=== PATIENT | male | born 1965 | race Caucasian/White ===

== ENCOUNTER 2017-03-18 20:26 | Emergency (ER) | payer SELFPAY ==
[2017-03-18 20:45] VITALS: O2SAT 97
[2017-03-18 22:03] LABS: BASO # 0.1 K/uL (0.0-0.2); BASO % 1.1 % (0.0-2.0); EOS # 0.1 K/uL (0.0-0.7); EOS % 1.8 % (0.0-4.0); HEMATOCRIT 44.5 % (35.0-51.0); LYMPH # 2.6 K/uL (1.0-4.3); LYMPH % 34.4 % (20.0-40.0); MEAN CELL VOLUME 92.1 fL (80.0-94.0); MEAN CORPUSCULAR HEMOGLOBIN 31.8 pg (27.0-31.0); MEAN CORPUSCULAR HGB CONC 34.5 g/dL (33.0-37.0); MEAN PLATELET VOLUME 8.4 fL (7.2-11.7); MONO # 0.5 K/uL (0.0-0.8); MONO % 7.1 % (0.0-10.0); NRBC % 0.1 % (0.0-2.0); RED CELL DISTRIBUTION WIDTH 13.4 % (11.5-14.5); WHITE BLOOD COUNT 7.6 K/uL (4.8-10.8)
[2017-03-18 22:05] LABS: RBC URINE 2 /hpf (0-3); URINE BILIRUBIN NEGATIVE (NEGATIVE); URINE BLOOD NEGATIVE (NEGATIVE); URINE COLOR Yellow (YELLOW); URINE GLUCOSE (UA) NORMAL (Normal); URINE KETONE NEGATIVE (NEGATIVE); URINE LEUKOCYTE ESTERASE NEG Leu/uL (Negative); URINE PROTEIN NEGATIVE (NEGATIVE); URINE UROBILINOGEN NORMAL mg/dL (0.2-1.0); WBC URINE < 1 /hpf (0-5)
[2017-03-18 22:06] LABS: URINE BACTERIA RARE (<OCC)
[2017-03-18 22:12] LABS: CHLORIDE 97 mmol/L (98-107); SODIUM 137 mmol/L (132-148)
[2017-03-18 22:14] LABS: AST/SGOT 49 U/L (17-59); BILIRUBIN,TOTAL 0.5 mg/dL (0.2-1.3); CARBON DIOXIDE 26 mmol/L (22-30); GFR AFRICAN-AMERICAN > 60
[2017-03-18 22:15] LABS: ALB/GLOB RATIO 1.3 (1.0-2.1); ALCOHOL SERUM < 10 mg/dl (0-10); ALKALINE PHOSPHATASE 111 U/L (38-126); ALT/SGPT 66 U/L (21-72); BLOOD UREA NITROGEN 14 mg/dL (9-20); CALCIUM 9.1 mg/dl (8.6-10.4); GLUCOSE,RANDOM 97 mg/dL (75-110); TOTAL PROTEIN 7.8 g/dL (6.3-8.3)
--- NOTE | 2017-03-18 23:41 | C.PDOC ---
History Of Present Illness pt presents with abdominal pain and constipation. Last bm 2-3 days ago. No f/c/n /v Time Seen by Provider: 03/18/17 22:58 Chief Complaint (Nursing): Abdominal Pain History Per: Patient History/Exam Limitations: no limitations Onset/Duration Of Symptoms: Days Current Symptoms Are (Timing): Still Present Context: Other Severity: Moderate Pain Scale Rating Of: 4 Location Of Pain/Discomfort: Diffuse Radiation Of Pain To:: None Quality Of Discomfort: Dull, Cramping Associated Symptoms: Constipation. denies: Fever, Chills Exacerbating Factors: None Alleviating Factors: None Last Bowel Movement: Days Ago Recent travel outside of the [place]: No Additional History Per: Patient Past Medical History Reviewed: Historical Data, Nursing Documentation, Vital Signs Vital Signs: Last Vital Signs Temp 98.5 F 03/18/17 20:40 Pulse 82 03/18/17 20:40 Resp 16 03/18/17 20:40 BP 123/82 03/18/17 20:40 Pulse Ox 97 03/18/17 23:41 - Medical History PMH: Denies: Asthma, Chronic Kidney Disease - [facility] Procedures INSPECTION OF PERITONEAL CAVITY, OPEN APPROACH (09/13/15) SUPPLEMENT L INGUINAL REGION WITH SYNTH SUB, OPEN APPROACH (09/13/15) Family History: States: No Known Family Hx - Social History Hx Tobacco Use: No Hx Alcohol Use: Yes Hx Substance Use: No - Immunization History Hx Tetanus Toxoid Vaccination: No Hx Influenza Vaccination: Yes Hx Pneumococcal Vaccination: No Review Of Systems Constitutional: Negative for: Fever, Chills Eyes: Negative for: Vision Change ENT: Negative for: Throat Pain Cardiovascular: Negative for: Chest Pain Respiratory: Negative for: Shortness of Breath Gastrointestinal: Positive for: Abdominal Pain, Constipation. Negative for: Nausea, Vomiting Genitourinary: Negative for: Dysuria Musculoskeletal: Negative for: Back Pain Skin: Negative for: Rash, Lesions, Jaundice Neurological: Negative for: Weakness Psych: Negative for: Anxiety Physical Exam - Physical Exam Appears: Non-toxic, No Acute Distress Skin: Warm, Dry Head: Normacephalic Eye(s): bilateral: Normal Inspection Oral Mucosa: Moist Neck: Supple Chest: Symmetrical Cardiovascular: Rhythm Regular Respiratory: No Rales, No Rhonchi, No Wheezing Gastrointestinal/Abdominal: Soft, Tenderness, No Organomegaly, No Distention, No Rebound Back: No CVA Tenderness Extremity: No Tenderness Extremity: Bilateral: Atraumatic, Normal Color And Temperature Pulses: Left Dorsalis Pedis: Normal, Right Dorsalis Pedis: Normal Neurological/Psych: Oriented x3, Normal Speech, Normal Cognition Gait: Steady ED Course And Treatment - Laboratory Results Result Diagrams: 03/18/17 22:01 03/18/17 22:01 O2 Sat by Pulse Oximetry: 97 Pulse Ox Interpretation: Normal Disposition Counseled Patient/Family Regarding: Studies Performed, Diagnosis, Need For Followup, Rx Given - Disposition Referrals: [facility] [Outside] [facility] [Outside] Disposition: HOME/ ROUTINE Disposition Time: 21:00 Condition: FAIR Prescriptions: Polyethylene Glycol 3350 [Miralax] 17 gm PO DAILY #270 ml Forms: [employer] (Ukrainian) Print Language: MONTENEGRIN - Clinical Impression Clinical Impression: Constipation, Abdominal pain
[2017-03-19] MEDS ORDERED: Magnesium Citrate Oral SOL (300 ml) PO ONE (00:23)
[2017-03-19] MEDS ORDERED: Magnesium Citrate Oral SOL (300 ml) ONE (00:29)
[2017-03-19 00:40] VITALS: BP 129/72; PULSE 81; RESP 20; TEMP 97.8
--- NOTE | 2017-03-19 11:20 | RAD ---
PROCEDURE: Radiographs of the chest and abdomen (obstructive series) HISTORY: abd pain COMPARISON: Obstructive 09/14/2015. TECHNIQUE: AP radiograph of the chest, with upright and supine radiographs of the abdomen. FINDINGS: CHEST: Lungs: Clear. Cardiovascular: Cardiac silhouette appears upper limits of normal size. No pulmonary vascular derangement appreciated. Pleura: No pleural fluid. No pneumothorax. Other findings: None. ABDOMEN AND PELVIS: Bowel: Unremarkable bowel gas pattern. No evidence of mechanical obstruction. Prior radiodensity in the region of the proximal descending left colon segment is now not identified. Free air: None. Bones: Unremarkable. Other findings: Small phlebolith like density seen the right pelvis soft tissues inferiorly. IMPRESSION: Nonobstructive bowel gas pattern is identified. Accompanying chest reveals no acute cardiopulmonary disease. No signal change compared to 09/14/2015 radiographs.
== END 2017-03-19 00:40 | disposition home or self-care (01) ==
LOC: C.ER 20:26
DX: K59.00 Constipation, unspecified (principal); R10.9 Unspecified abdominal pain
CPT/HCPCS: 74022; 80053; 81001; 83690; 85025; 99285; G0480

== ENCOUNTER 2018-11-06 22:32 | Emergency (ER) | payer OTHER ==
[2018-11-06 22:41] VITALS: RESP 16
[2018-11-06 23:10] LABS: BASO # 0.1 K/uL (0.0-0.2); BASO % 0.8 % (0.0-2.0); EOS # 0.1 K/uL (0.0-0.7); EOS % 2.1 % (0.0-4.0); HEMOGLOBIN 13.9 g/dL (12.0-18.0); LYMPH # 2.7 K/uL (1.0-4.3); LYMPH % 41.5 % (20.0-40.0); MEAN CELL VOLUME 93.7 fL (80.0-94.0); MEAN CORPUSCULAR HEMOGLOBIN 32.2 pg (27.0-31.0); MEAN CORPUSCULAR HGB CONC 34.3 g/dL (33.0-37.0); MONO # 0.5 K/uL (0.0-0.8); MONO % 8.5 % (0.0-10.0); NEUT % 47.1 % (50.0-75.0); NRBC % 0.1 % (0.0-2.0); RBC 4.32 Mil/uL (4.40-5.90); RED CELL DISTRIBUTION WIDTH 13.5 % (11.5-14.5); WHITE BLOOD COUNT 6.4 K/uL (4.8-10.8)
--- NOTE | 2018-11-06 23:10 | C.PDOC ---
History Of Present Illness 53 y/o male pt presents to the ER c/o low abdominal fullness. Associated sx includes constipation. Pt reports using a stool softener today, which allowed him to have a small bowel movement but no full evacuation. Pt denies abdominal pain, nausea, vomiting, fever, chills, chest pain and SOB. Time Seen by Provider: 11/06/18 22:50 Chief Complaint (Nursing): Abdominal Pain History Per: Patient History/Exam Limitations: no limitations Onset/Duration Of Symptoms: Days Current Symptoms Are (Timing): Still Present Past Medical History Reviewed: Historical Data, Nursing Documentation, Vital Signs Vital Signs: Last Vital Signs Temp 98.7 F 11/06/18 22:34 Pulse 79 11/06/18 22:34 Resp 16 11/06/18 22:34 BP 138/85 11/06/18 22:34 Pulse Ox 98 11/06/18 22:34 - [facility] Procedures INSPECTION OF PERITONEAL CAVITY, OPEN APPROACH (09/13/15) SUPPLEMENT L INGUINAL REGION WITH SYNTH SUB, OPEN APPROACH (09/13/15) Family History: States: Unknown Family Hx - Social History Hx Tobacco Use: No Hx Alcohol Use: Yes Hx Substance Use: No - Immunization History Hx Tetanus Toxoid Vaccination: No Hx Influenza Vaccination: Yes Hx Pneumococcal Vaccination: No Review Of Systems Except As Marked, All Systems Reviewed And Found Negative. Gastrointestinal: Positive for: Constipation Physical Exam - Physical Exam Appears: Well, Non-toxic, No Acute Distress Skin: Normal Color, Warm, Dry Head: Normacephalic Eye(s): bilateral: Normal Inspection, PERRL, EOMI Nose: Normal Oral Mucosa: Moist Chest: Symmetrical Cardiovascular: Rhythm Regular, No Murmur Respiratory: Normal Breath Sounds, No Rales, No Rhonchi, No Wheezing Gastrointestinal/Abdominal: Normal Exam, Soft, No Tenderness, No Distention Extremity: Bilateral: Atraumatic, Normal Color And Temperature, Normal ROM Neurological/Psych: Oriented x3, Normal Speech Gait: Steady ED Course And Treatment - Laboratory Results Result Diagrams: 11/06/18 23:06 11/06/18 23:06 O2 Sat by Pulse Oximetry: 98 (RA) Pulse Ox Interpretation: Normal Medical Decision Making Medical Decision Making: Assessment: constipation Plans: -- chem labs -- blood work -- Obstructive series XR Disposition Counseled Patient/Family Regarding: Studies Performed, Diagnosis - Disposition Referrals: [facility] [Outside] Disposition: HOME/ ROUTINE Disposition Time: 00:32 Condition: STABLE Additional Instructions: follow up with your doctor within 2 days call to make an appointment increase vegetables and fruits in your diet return to ER if symptoms worsens or progress Prescriptions: Polyethylene Glycol 3350 [Miralax] 17 g PO DAILY PRN #12 packet PRN Reason: Constipation Instructions: Constipation, Adult (DC) Forms: Gen Discharge Inst Russian, [facility] (Russian) Print Language: SAMOAN - Clinical Impression Clinical Impression: Constipation - Scribe Statement The provider has reviewed the documentation as recorded by the Stanleyibe Velazquez Do Provider Attestation: All medical record entries made by the Scribe were at my direction and personally dictated by me. I have reviewed the chart and agree that the record accurately reflects my personal performance of the history, physical exam, medi stuart decision making, and the department course for this patient. I have also personally directed, reviewed, and agree with the discharge instructions and disposition.
[2018-11-06 23:23] LABS: ALB/GLOB RATIO 1.5 (1.0-2.1); ALBUMIN 4.2 g/dL (3.5-5.0); ALT/SGPT 81 U/L (21-72); AST/SGOT 75 U/L (17-59); BLOOD UREA NITROGEN 21 mg/dL (9-20); CALCIUM 9.5 mg/dl (8.6-10.4); GFR NON-AFRICAN AMERICAN > 60; LIPASE 96 U/L (23-300)
[2018-11-07] MEDS ORDERED: Bisacodyl 5mg EC Tab PO ONE (00:31)
[2018-11-07 00:52] VITALS: BP 121/72; PULSE 74; TEMP 97.9; O2SAT 99
--- NOTE | 2018-11-07 16:14 | RAD ---
Date of service: 11/07/2018 PROCEDURE: Radiographs of the chest and abdomen (obstructive series) HISTORY: abd pain COMPARISON: No prior. TECHNIQUE: AP radiograph of the chest, with upright and supine radiographs of the abdomen. 3 views obtained. FINDINGS: CHEST: Lungs: Clear. Cardiovascular: Normal size heart. No pulmonary vascular congestion. No aortic atherosclerotic calcification present Pleura: No pleural fluid. No pneumothorax. Other findings: None. ABDOMEN AND PELVIS: Bowel: Unremarkable bowel gas pattern. No evidence of mechanical obstruction. Free air: None. Bones: Unremarkable. Other findings: None. IMPRESSION: Unremarkable radiographs of chest and abdomen. No evidence of mechanical bowel obstruction.
== END 2018-11-07 00:52 | disposition home or self-care (01) ==
LOC: C.ER 22:32
DX: K59.00 Constipation, unspecified (principal)

== ENCOUNTER 2018-12-19 10:56 | Emergency (ER) | payer OTHER ==
[2018-12-19 11:05] VITALS: BP 108/72; PULSE 90; RESP 20; TEMP 99; O2SAT 97
--- NOTE | 2018-12-19 11:48 | C.PDOC ---
History Of Present Illness 53 year old male presents to the ED complaining of dry and nonproductive cough since yesterday. States the nasal congestion prevented him from sleeping last night. Reports he took OTC cough syrup with little improvement. Denies any sick contacts or recent travels. Denies seasonal allergies, fever, chills, chest pain, nausea, or vomiting. Chief Complaint (Nursing): Cough, Cold, Congestion History Per: Patient History/Exam Limitations: no limitations Onset/Duration Of Symptoms: Days (1) Current Symptoms Are (Timing): Still Present Location Of Pain: None Sick Contacts (Context): None Associated Symptoms: Cough, Nasal Congestion. denies: Fever, Chills, Sore Throat, Neck Pain, Nausea, Vomiting, Diarrhea Ear Symptoms: Bilateral: None Past Medical History Reviewed: Historical Data, Nursing Documentation, Vital Signs Vital Signs: Last Vital Signs Temp 99 F 12/19/18 10:59 Pulse 90 12/19/18 10:59 Resp 20 12/19/18 10:59 BP 108/72 12/19/18 10:59 Pulse Ox 97 12/19/18 10:59 Primary Care Provider: Cheo Tran - Medical History PMH: No Chronic Diseases Denies: Asthma, Chronic Kidney Disease Surgical History: No Surg Hx - [facility] Procedures INSPECTION OF PERITONEAL CAVITY, OPEN APPROACH (09/13/15) SUPPLEMENT L INGUINAL REGION WITH SYNTH SUB, OPEN APPROACH (09/13/15) Family History: States: No Known Family Hx - Social History Hx Tobacco Use: No Hx Alcohol Use: Yes Hx Substance Use: No - Immunization History Hx Tetanus Toxoid Vaccination: No Hx Influenza Vaccination: No Hx Pneumococcal Vaccination: No Review Of Systems Constitutional: Negative for: Fever, Chills ENT: Positive for: Nose Congestion. Negative for: Throat Pain, Throat Swelling Cardiovascular: Negative for: Chest Pain Respiratory: Positive for: Cough. Negative for: Shortness of Breath Gastrointestinal: Negative for: Nausea, Vomiting, Abdominal Pain, Diarrhea Musculoskeletal: Negative for: Neck Pain Physical Exam - Physical Exam Appears: Non-toxic, No Acute Distress Skin: Warm, Dry, No Rash Head: Normacephalic Eye(s): bilateral: PERRL, EOMI Ear(s): Bilateral: Normal Nose: Normal Oral Mucosa: Moist Tongue: Normal Appearing Lips: Normal Appearing Teeth: Normal Dentition Gingiva: Normal Appearing Throat: Normal, No Erythema, No Exudate Neck: Supple Chest: Symmetrical Cardiovascular: Rhythm Regular Respiratory: Normal Breath Sounds, No Accessory Muscle Use, No Rales, No Rhonchi, No Wheezing Gastrointestinal/Abdominal: Soft, No Tenderness Neurological/Psych: Oriented x3, Normal Speech Gait: Steady ED Course And Treatment O2 Sat by Pulse Oximetry: 97 (RA) Pulse Ox Interpretation: Normal Medical Decision Making Medical Decision Making: Plan - Tessalon Perles 200mg PO and Sudafed 60mg PO given - Patient will continue meds as prescribed and instructed to follow up with PMD and return to the ED if symptoms worsen or persist. - Patient verbalizes understanding and is in agreement with plan. - Patient is stable for discharge. Disposition Counseled Patient/Family Regarding: Diagnosis, Need For Followup, Rx Given - Disposition Referrals: Cheo Tran MD [Medical Doctor] - Disposition: HOME/ ROUTINE Disposition Time: 11:45 Condition: STABLE Additional Instructions: continuar los medicamentos segn lo prescrito descanso e hidratacin seguimiento con PMD en 1-2 [place] [facility] a la ED si los sntomas empeoran continue meds as prescribed rest and hydration follow up with PMD in 1-2 days Return to ED if symptoms worsen Prescriptions: Benzonatate [Tessalon Perles] 100 mg PO TID #30 sgl Fluticasone Nasal [Flonase] 1 spr NS BID PRN #1 bottle PRN Reason: Nasal Congestion Pseudoephedrine HCl [Sudafed 24-Hour] 240 mg PO DAILY PRN #30 tab.er.24h PRN Reason: Sinus Symptoms Instructions: Cough, Runny Nose, and the Common Cold (DC) Forms: [employer] (Luxembourgish) Print Language: SURINAMESE - Clinical Impression Clinical Impression: Cough, Nasal congestion - PA / FAMILY LIVING EDUCATOR / Resident Statement MD/DO has reviewed & agrees with the documentation as recorded. - Scribe Statement The provider has reviewed the documentation as recorded by the Stanleyiblen Pretty All medical record entries made by the Scribe were at my direction and personally dictated by me. I have reviewed the chart and agree that the record accurately reflects my personal performance of the history, physical exam, medi stuart decision making, and the department course for this patient. I have also personally directed, reviewed, and agree with the discharge instructions and disposition.
== END 2018-12-19 12:02 | disposition home or self-care (01) ==
LOC: C.ER 10:56
DX: R05 Cough (principal); R09.81 Nasal congestion